=== PATIENT | male | born 1980 | race Caucasian/White ===

== ENCOUNTER 2023-02-22 17:44 | Inpatient (IN) | payer MEDICAID, OTHER ==
[~2023-02-22] VITALS: Ht 177.8 cm; Wt 48.6 kg
[2023-02-22 19:46] LABS: BASOPHILS % (AUTO) 0.3 % (0.0-2.0); EOSINOPHILS % (AUTO) 0.2 % (1.0-6.0); HEMATOCRIT 38.5 % (41-53); HEMOGLOBIN 13.3 g/dL (13.5-17.5); LYMPHOCYTES # (AUTO) 1.3 K/uL (1.0-4.8); LYMPHOCYTES % (AUTO) 15.8 % (22.0-44.0); MEAN CORPUSCULAR HEMOGLOBIN 32.1 pg (26.0-34.0); MEAN CORPUSCULAR HGB CONC 34.6 G/dL (31.0-37.0); MEAN CORPUSCULAR VOLUME 93 fL (80-100); MONOCYTES # (AUTO) 0.9 K/uL (0.1-1.0); MONOCYTES % (AUTO) 10.6 % (2.0-9.0); NEUTROPHILS # (AUTO) 6.2 K/uL (1.8-7.7); NEUTROPHILS % (AUTO) 73.1 % (40.0-70.0); PLATELET COUNT (AUTO) 264 K/uL (150-450); RED BLOOD CELL COUNT(AUTO) 4.16 MIL/uL (4.50-5.90); RED CELL DISTRIBUTION WIDTH 13.9 % (11.5-14.5); WHITE BLOOD COUNT (AUTO) 8.5 K/uL (4.5-11.0)
[2023-02-22 19:50] LABS: ANION GAP 11 mmol/L (8-16); CALCIUM, TOTAL 9.4 mg/dL (8.8-10.5); CARBON DIOXIDE 28 mmol/L (22-29); CHLORIDE 97 mmol/L (98-107); CREATININE 0.83 mg/dL (0.60-1.30); GLOMERULAR FILTR. RATE CALC > 60 mL/min (>60); GLUCOSE,RANDOM 80 mg/dL (70-110); POTASSIUM 3.6 mmol/L (3.5-5.1); SODIUM SERUM 136 mmol/L (136-145); UREA NITROGEN, BLOOD 17 mg/dL (7-18)
[2023-02-22 19:55] LABS: ALANINE AMINOTRANSFERASE 18 U/L (12-78); ALBUMIN 4.3 g/dL (3.4-5.0); ALKALINE PHOSPHATASE 58 U/L (46-116); ASPARTATE AMINOTRANSFERASE 17 U/L (15-37); BILIRUBIN,TOTAL 1.3 mg/dL (0.1-1.0); TOTAL PROTEIN, SERUM 7.8 g/dL (6.4-8.2)
[2023-02-22 19:59] LABS: ALCOHOL, BLOOD (SERUM) < 3 mg/dL (0-10)
[2023-02-23] VITALS (8 sets, daily range): BP systolic 109–132; BP diastolic 73–79; PULSE 86–98; RESP 17–18; TEMP 97.2–98; O2SAT 98–100
[2023-02-23 01:35] LABS: COVID AG,FIA SOURCE NASAL SWAB
[2023-02-23 01:47] LABS: SARS-COV2 (COVID) ANTIGEN,FIA Negative (Negative)
[2023-02-23] MEDS: HYDROCODONE/ACETAMINOPHEN 5-325 MG TABLET PO ONE ×3 (02:00→02:16)
[2023-02-23] MEDS: LORazepam 1 MG TABLET PO ONE ×2 (02:13→02:15)
[2023-02-23] MEDS ORDERED: LORazepam 2 MG/ML VIAL IM ONE (02:30)
[2023-02-23] MEDS ORDERED: QUEtiapine FUMARATE 100 MG TABLET PO PRN (07:45)
[2023-02-23 09:49] LABS: APPEARANCE,URINE CLEAR (CLEAR); BILIRUBIN,URINE NEGATIVE (NEGATIVE); COLOR,URINE YELLOW (YELLOW); GLUCOSE, URINE (UA) NEGATIVE (NEGATIVE); KETONES,URINE 40-60 mg/dL (NEGATIVE); LEUKOCYTE ESTERASE ,URINE TRACE (NEGATIVE); NITRATE,URINE NEGATIVE (NEGATIVE); OCCULT BLOOD,URINE NEGATIVE (NEGATIVE); PH,URINE 5.5 (5.0-8.0); PH,URINE DRUG SCREEN 5.5 (5.0-8.0); PROTEIN,URINE NEGATIVE (NEGATIVE); SPECIFIC GRAVITIY, URINE 1.017 (1.003-1.030); UROBILINOGEN,URINE <=1.0 mg/dL (<=1.0)
[2023-02-23 09:57] LABS: ALCOHOL, URINE DRUG SCREEN NEGATIVE (NEGATIVE); AMPHET/METH SCREEN,URINE NEGATIVE (NEGATIVE); BARBITURATE SCREEN, URINE NEGATIVE (NEGATIVE); BENZODIAZEPINES SCREEN,URINE NEGATIVE (NEGATIVE); CANNABINOID SCREEN,URINE NEGATIVE (NEGATIVE); COCAINE SCREEN,URINE NEGATIVE (NEGATIVE); METHADONE SCREEN, URINE NEGATIVE (NEGATIVE); OPIATE SCREEN,URINE POSITIVE (NEGATIVE); PHENCYCLIDINE SCREEN,URINE NEGATIVE (NEGATIVE)
[2023-02-23 10:09] LABS: BACTERIA,URINE None Seen /HPF (None Seen); RBC,URINE None Seen /HPF (0-2); WBC,URINE 0-2 /HPF (0-5)
[2023-02-23] MEDS ORDERED: ACETAMINOPHEN 325 MG TABLET PO PRN (10:15)
[2023-02-23] MEDS ORDERED: CloNIDine HCL 0.1 MG TABLET PO PRN (10:15)
[2023-02-23] MEDS ORDERED: HydrOXYzine PAMOATE 50 MG CAPSULE PO PRN ×2 (10:15)
[2023-02-23] MEDS ORDERED: LOPERAMIDE HCL 2 MG CAPSULE PO PRN (10:15)
[2023-02-23] MEDS ORDERED: MAG HYDROX/AL HYDROX/SIMETH ES 30 ML SUSPENSION UDCUP PO PRN ×2 (10:15)
[2023-02-23] MEDS ORDERED: GuaiFENesin/D-METHORPHAN [SUGAR-FREE] 200-20MG/10 ML SYRUP UDCUP PO PRN (10:15)
[2023-02-23] MEDS ORDERED: TUBERCULIN, PURIFIED PROTEIN DERIVATIVE 5 TU/0.1 ML SYRINGE ID ONE (10:15)
[2023-02-23] MEDS ORDERED: PROMETHAZINE HCL 25 MG TABLET PO PRN (10:15)
[2023-02-23] MEDS ORDERED: IBUPROFEN 600 MG TABLET PO PRN (10:15)
[2023-02-23] MEDS: CloNIDine HCL 0.1 MG TABLET PO SCH ×3 (11:22→21:01)
[2023-02-23] MEDS ORDERED: GABAPENTIN 300 MG CAPSULE PO SCH (13:00)
[2023-02-23] MEDS: LORazepam 2 MG TABLET PO PRN ×2 (15:17→20:58)
[2023-02-23] MEDS: THIAMINE 100 MG TABLET PO SCH (17:09)
[2023-02-23] MEDS: MELATONIN 5 MG TABLET PO SCH (20:58)
[2023-02-24] MEDS: CloNIDine HCL 0.1 MG TABLET PO SCH ×4 (06:22→21:09)
[2023-02-24 07:24] LABS: CHOL/HDL RATIO 2.3 (4.2-7.3); FREE T4 (FREE THYROXINE) 1.11 ng/dL (0.76-1.46); THYROID STIMULATING HORMONE 4.84 uIU/mL (0.36-3.74)
[2023-02-24 07:30] LABS: HEMOGLOBIN A1C 4.3 % (3.8-5.6)
[2023-02-24] MEDS: FOLIC ACID 1 MG TABLET PO SCH (08:51)
[2023-02-24] MEDS: OMEGA-3/DHA/EPA/FISH OIL 1,000 MG CAPSULE PO SCH (08:51)
[2023-02-24] MEDS: MULTIVITAMINS WITH MINERALS, THERAPEUTIC TABLET PO SCH (08:51)
[2023-02-24] MEDS: THIAMINE 100 MG TABLET PO SCH ×2 (08:51→18:57)
[2023-02-24] MEDS ORDERED: DULoxetine HCL 20 MG CAPSULE PO SCH (09:00)
[2023-02-24] MEDS ORDERED: ATOMOXETINE HCL 10 MG CAPSULE PO SCH (09:00)
[2023-02-24] MEDS ORDERED: BuPROPion HCL XL 150 MG ER TABLET PO SCH (09:00)
[2023-02-24 09:30] VITALS: BP 90/48; PULSE 90; RESP 18; TEMP 97.2; O2SAT 96
[2023-02-24 10:19] VITALS: BP 110/68; PULSE 84; RESP 17
[2023-02-24] MEDS: LORazepam 2 MG TABLET PO PRN (10:41)
[2023-02-24 11:56] VITALS: BP 96/60; PULSE 86; RESP 18; O2SAT 98
[2023-02-24 18:56] VITALS: BP 114/75; PULSE 95; RESP 18
[2023-02-24 20:00] VITALS: BP 102/60; PULSE 92; RESP 18; TEMP 97.8; O2SAT 97
[2023-02-24 20:39] VITALS: BP 102/55; PULSE 92; RESP 18; TEMP 97.8; O2SAT 97
[2023-02-24] MEDS: MELATONIN 5 MG TABLET PO SCH (21:09)
[2023-02-24] MEDS: ZOLPIDEM TARTRATE 10 MG TABLET PO PRN (21:50)
[2023-02-25] VITALS: BP 120/79; PULSE 98; RESP 18; TEMP 97.6; O2SAT 98
[2023-02-25 04:00] VITALS: BP 130/65; PULSE 98; RESP 18; TEMP 97.7; O2SAT 97
[2023-02-25] MEDS: CloNIDine HCL 0.1 MG TABLET PO SCH (05:58)
[2023-02-25 08:33] VITALS: BP 108/65; PULSE 81; RESP 17; TEMP 97.5; O2SAT 100
[2023-02-25 08:34] VITALS: BP 108/65; PULSE 81; RESP 17; TEMP 97.5; O2SAT 100
[2023-02-25] MEDS: ATOMOXETINE HCL 18 MG CAPSULE PO SCH (08:35)
[2023-02-25] MEDS: THIAMINE 100 MG TABLET PO SCH ×2 (08:37→16:13)
[2023-02-25] MEDS: BuPROPion HCL XL 150 MG ER TABLET PO SCH (08:37)
[2023-02-25] MEDS: FOLIC ACID 1 MG TABLET PO SCH (08:37)
[2023-02-25] MEDS: MULTIVITAMINS WITH MINERALS, THERAPEUTIC TABLET PO SCH (08:37)
[2023-02-25] MEDS: OMEGA-3/DHA/EPA/FISH OIL 1,000 MG CAPSULE PO SCH (08:38)
[2023-02-25] MEDS ORDERED: DULoxetine HCL 30 MG CAPSULE PO SCH (09:00)
[2023-02-25] MEDS ORDERED: ATOM18CA7 PO (10:38)
[2023-02-25] MEDS ORDERED: NALT50TA6 PO (10:38)
[2023-02-25] MEDS ORDERED: MELA5TAB40 PO (10:38)
[2023-02-25] MEDS ORDERED: DULO-114 PO (10:38)
[2023-02-25] MEDS ORDERED: BUPR-49 PO (10:38)
[2023-02-25] MEDS ORDERED: OMEG-135 PO (10:38)
[2023-02-25] MEDS: LORazepam 2 MG TABLET PO PRN ×2 (13:40→22:21)
[2023-02-25] MEDS: MELATONIN 5 MG TABLET PO SCH (20:41)
[2023-02-25 20:48] VITALS: BP 112/72; PULSE 97; RESP 18; TEMP 97.4; O2SAT 98
[2023-02-25 20:56] VITALS: BP 112/72; PULSE 97; RESP 18; TEMP 97.4; O2SAT 98
[2023-02-25] MEDS: ZOLPIDEM TARTRATE 10 MG TABLET PO PRN (21:25)
[2023-02-26] MEDS: ATOMOXETINE HCL 18 MG CAPSULE PO SCH (08:38)
[2023-02-26] MEDS: FOLIC ACID 1 MG TABLET PO SCH (08:41)
[2023-02-26] MEDS: OMEGA-3/DHA/EPA/FISH OIL 1,000 MG CAPSULE PO SCH (08:41)
[2023-02-26] MEDS: MULTIVITAMINS WITH MINERALS, THERAPEUTIC TABLET PO SCH (08:41)
[2023-02-26] MEDS: BuPROPion HCL XL 150 MG ER TABLET PO SCH (08:41)
[2023-02-26] MEDS: THIAMINE 100 MG TABLET PO SCH (08:41)
[2023-02-26 08:55] VITALS: BP 112/84; PULSE 79; RESP 18; TEMP 96.9; O2SAT 100
[2023-02-26] MEDS ORDERED: DULoxetine HCL 20 MG CAPSULE PO SCH (09:00)
== END 2023-02-26 12:15 | disposition home or self-care (01) | DRG 751 ==
LOC: EMS 17:47 → 3EC 02-23 08:11
PROVIDERS: ADMIT Psychiatry & Neurology Psychiatry; ATTEND Psychiatry & Neurology Psychiatry
DX: F33.2 Major depressive disorder, recurrent severe without psychotic features (principal); D64.9 Anemia, unspecified; F17.200 Nicotine dependence, unspecified, uncomplicated; M54.2 Cervicalgia; G89.29 Other chronic pain; F11.23 Opioid dependence with withdrawal; Z20.822 Contact with and (suspected) exposure to COVID-19; R10.9 Unspecified abdominal pain; R82.4 Acetonuria; F41.9 Anxiety disorder, unspecified; Z55.9 Problems related to education and literacy, unspecified; Z59.9 Problem related to housing and economic circumstances, unspecified; Z63.9 Problem related to primary support group, unspecified; Z65.3 Problems related to other legal circumstances
CPT/HCPCS: 72125; 80053; 80061; 80307; 81001; 83036; 84439; 84443; 85025; 86592; 99285; G0480; J2060; Q9967